=== PATIENT | female | born 2000 | race Caucasian/White ===

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

== ENCOUNTER 2020-05-10 18:41 | Outpatient (REF) | payer OTHER, SELFPAY ==
[2020-05-12 12:57] LABS: COVID-19 RT-PCR UVMMC Result Negative (Negative)
== END 2020-05-10 18:42 | disposition home or self-care (01) ==
LOC: LBN 18:41
PROVIDERS: PCP Nurse Practitioner Family; Visit Provider Nurse Practitioner Family
DX: J02.9 Acute pharyngitis, unspecified (principal); Z20.822 Contact with and (suspected) exposure to COVID-19
CPT/HCPCS: U0003; 87070

== ENCOUNTER 2021-09-27 15:35 | Outpatient (REF) | payer MEDICAID, SELFPAY ==
--- NOTE | 2021-09-27 15:00 | PAPFT_PTH ---
PATIENT: Gayle Frey LOC: [facility] U#:[id number] AGE/SX: 21/F ROOM: RE09/27/[address]: Diane Tang NP : 2000 BED: DIS: 09/27/2021 SPEC #: [id number] RECD: 09/27/21 17:19 STATUS: LAKIA REDontrell #: [id number] JAMEL: 09/27/21 15:[address]: Diane Tang NP DEPT: [facility] Cytology RECD BY: Tiff Swann ENTERED: 09/27/21 17:19 SP TYPE: PAPFT OTHR DR: Emily Kendall, SHEREE Tissues: 1 - CX/ENDOCX FOR PAP SMEARS Procedures: PAP THIN PREP/[facility] Screening Comments: [id number] (CHLAMYDIA/GC)
[2021-09-28 13:26] LABS: Chlamydia Result Negative (Negative); GC Result Negative (Negative)
== END 2021-09-27 15:36 | disposition home or self-care (01) ==
LOC: LBN 15:35
PROVIDERS: PCP Nurse Practitioner Family; Visit Provider Nurse Practitioner Women's Health
DX: N76.0 Acute vaginitis (principal); Z12.4 Encounter for screening for malignant neoplasm of cervix; Z11.3 Encounter for screening for infections with a predominantly sexual mode of transmission
CPT/HCPCS: 87491; 87591; 88142

== ENCOUNTER 2024-12-26 03:26 | Outpatient (CLI) | payer BC, SELFPAY ==
[2024-12-26 13:38] LABS: Abs Immature Grans 0.02 10^3/uL (0.0-0.06); HCT 41.1 % (36.0-46.0); HGB 13.7 g/dL (11.2-15.7); Immature Grans % 0.3 %; MCH 28.0 pg (27.0-33.0); MCHC 33.3 % (32.0-36.0); MCV 84 fL (80-95); MPV 9.1 fL (8.0-11.0); Platelet Count 354 10^3/uL (130-400); RBC 4.89 10^6/uL (3.93-5.22); RDW 13.1 % (11.7-14.6); RDW-SD 39.8 fL; WBC 7.58 10^3/uL (4.4-10.8)
[2024-12-26 13:54] LABS: Hemoglobin A1C 5.3 % (<5.7)
[2024-12-26 14:17] LABS: ALT 7 U/L (14-59); AST 13 U/L (15-37); Albumin 4.2 g/dL (3.4-5.0); Alkaline Phosphatase 74 U/L (46-116); Anion Gap 11.1 mmol/L (3-11); BUN 10 mg/dL (7-18); Bilirubin, Total 0.4 mg/dL (0.2-1.0); CO2 27.9 mmol/L (21.0-32.0); Calcium 9.3 mg/dL (8.5-10.1); Calculated LDL 121 mg/dL (<100); Chloride 101 mmol/L (98-107); Cholesterol 175 mg/dL (<200); Estimated GFR 123.78 (mL/min/1.73m2); Glucose 95 mg/dL (74-106); HDL Cholesterol 45 mg/dL (>or=50); Potassium 4.0 mmol/L (3.5-5.1); Sodium 140 mmol/L (136-145); TSH (W/Ref FT4) 1.70 uIU/mL (0.36-3.74); Total Protein 8.1 g/dL (6.4-8.2); Triglyceride 49 mg/dL (<150)
[2024-12-27 09:26] LABS: HIV-1/2 Ag & Ab Screen Negative (Negative)
[2024-12-29 11:26] LABS: HBs Antibody, Quant 125.4 mIU/mL (See Note); Hepatitis B Surface Antigen Negative (Negative)
[2024-12-29 11:47] LABS: Hepatitis C Ab w Rflx HCV PCR Negative (Negative)
== END 2024-12-26 03:27 | disposition home or self-care (01) ==
PROVIDERS: PCP Nurse Practitioner Family; Visit Provider Nurse Practitioner Family
DX: Z11.59 Encounter for screening for other viral diseases (principal); E78.5 Hyperlipidemia, unspecified; Z11.4 Encounter for screening for human immunodeficiency virus [HIV]
CPT/HCPCS: 36415; 80053; 80061; 86704; 86706; 86803; 87340; 87389; 83036; 84443; 85025

== ENCOUNTER 2024-12-31 15:51 | Outpatient (REF) | payer BC, SELFPAY ==
--- NOTE | 2024-12-31 15:30 | PAPFT_PTH ---
PATIENT: Gayle Frey LOC: [facility] U#:[id number] AGE/SX: 24/F ROOM: RE12/31/[address]: Diane Tang NP : 2000 BED: DIS: 12/31/2024 SPEC #: [id number] RECD: 12/31/24 17:52 STATUS: LAKIA REDontrell #: [id number] JAMEL: 12/31/24 15:[address]: Diane Tang NP [facility] Cytology RECD BY: Tiff Swann ENTERED: 12/31/24 17:52 SP TYPE: PAPFT OTHR DR: Emily Kendall, [employer] Tissues: 1 - CX/ENDOCX FOR PAP SMEARS Procedures: PAP THIN PREP/[facility] Screening HPV DNA PROBE Comments: [id number] (HPV 16 & 18/45)
== END 2024-12-31 15:52 | disposition home or self-care (01) ==
LOC: LBN 15:51
PROVIDERS: PCP Nurse Practitioner Family; Visit Provider Nurse Practitioner Women's Health
DX: Z12.4 Encounter for screening for malignant neoplasm of cervix (principal)
CPT/HCPCS: 88142; 87624

== ENCOUNTER 2025-01-09 00:59 | Outpatient (CLI) | payer BC, SELFPAY ==
--- NOTE | 2025-01-09 14:28 | W.NUTRFU ---
Documented by User: Olga Brooks 01/14/25 09:58 Date of service: 01/09/25 Time of Service: 01:00 Nutrition Note NOTE: Met with pt in person for nutrition counseling. 24 yr old female pt who presents with desire for guidance on what to eat and how much to eat to manage hyperlipidemia. She would like to focus on that first and then tackle carbs/added sugars and wt loss management. Pt reports having all her food intake usually after she gets off from work: she'll have a snack at 5, dinner at 8, and another snack around 10-11. Lives with her partner and does all the cooking. She'll have pickled foods, cheese, deli meat, chips, sweets for snacks quite often and has sweet potato, broccoli, sandwiches, pasta, cheese for dinner. Has water and daily energy drink. Admits to eating large portions of these foods and condiments (kelsey hot sauce, fajardo, ranch), eating when she is bored and not truly hungry. Pt expressed in the past she has worked towards wt loss, tracked calories before, eating whole foods, etc but needs the motivation to start again and be pointed to at least the first step. Her upcoming wedding is one of her main motivators to start this journey. Together, we came up with the following goals to start on Sunday: 1. switch from deli meat to chicken/tofu/beans at least 3x a week at dinner time 2. have 3/4 cup of low-fat yogurt every morning next week 3. measure out portions of dinner using the kitchen scale every day during the week Will send pt calorie, sodium, protein, fat requirements so she can plan her meals and portions, says that it would be helpful for her to have these numbers for guidance. Pt would like a follow-up appointment a month from now. Pt is aware she can contact the dietitian in the meantime for any questions/concerns that come up. Time Spent in Nutritional Counseling and Treatment: 60 mins Documented by User: Angel Meeks RDN 01/14/25 10:03 Nutrition Note NOTE: Met with pt in person for nutrition counseling. 24 yr old female pt who presents with desire for guidance on what to eat and how much to eat to manage hyperlipidemia. She would like to focus on that first and then tackle carbs/added sugars and wt loss management. Pt reports having all her food intake usually after she gets off from work: she'll have a snack at 5, dinner at 8, and another snack around 10-11. Lives with her partner and does all the cooking. She'll have pickled foods, cheese, deli meat, chips, sweets for snacks quite often and has sweet potato, broccoli, sandwiches, pasta, cheese for dinner. Has water and daily energy drink. Admits to eating large portions of these foods and condiments (kelsey hot sauce, fajardo, ranch), eating when she is bored and not truly hungry. Pt expressed in the past she has worked towards wt loss, tracked calories before, eating whole foods, etc but needs the motivation to start again and be pointed to at least the first step. Her upcoming wedding is one of her main motivators to start this journey. Together, we came up with the following goals to start on Sunday: 1. switch from deli meat to chicken/tofu/beans at least 3x a week at dinner time 2. have 3/4 cup of low-fat yogurt every morning next week 3. measure out portions of dinner using the kitchen scale every day during the week Will send pt calorie, sodium, protein, fat requirements so she can plan her meals and portions, says that it would be helpful for her to have these numbers for guidance. Pt would like a follow-up appointment a month from now. Pt is aware she can contact the dietitian in the meantime for any questions/concerns that come up. Note reviewed and approved by Angel Meeks RDN (drafted by sports internship Olga Brooks)
== END 2025-01-09 01:00 | disposition home or self-care (01) ==
LOC: DS 00:59
PROVIDERS: PCP Nurse Practitioner Family; Visit Provider Dietitian, Registered
DX: E78.5 Hyperlipidemia, unspecified (principal)
CPT/HCPCS: 00123; 97802